=== PATIENT | female | born 1930 | race Caucasian/White ===

== ENCOUNTER → 2016-12-25 | Outpatient (CLI) | payer MEDICARE, OTHER, MEDICAID ==
[~2016-12-25] MED LIST: ALBUTEROL2.5 MG/0.5 INH; ALBUTEROL2.5 MG/31 INH; ARTIFICIAL TEAR15 M2 OPHTH; ARTIFICIAL TEAR15 M4 OPHTH; ARTIFICIAL TEAR15 ML OPHTH; ASPIRIN325 MG PO; BACTRIM SS 400/1 TAB PO; CALTRATE 600 +1 EAC1 PO; CITRACAL+D(315M1 TAB PO; CLARITIN10 MG PO; CORDARONE,PACE200 MG PO; COREG 3.1253.125 MG PO; COZAAR100 MG PO; ELOCON45 GM TOP; HYDROCHLOROTH12.5 M1; HYDROCHLOROTH12.5 MG PO; I-VITE TABLET1 EACH PO; ICAPS AREDS SO1 EACH PO; LASIX40 MG PO; LASIX80 MG PO; LEVOTHROID (SY50 MCG PO; LIPITOR10 MG PO; MAG-OX-400(241400 MG PO; MI ACID SUSPEN355 M1 PO; MILK OF MA400 MG/5 M PO; MIRALAX PO527 GM/BOT PO; MIRALAX17 GM PO; MYLANTA (MAG-AL30 ML PO; NAMENDA10 MG PO; NORCO 5-325 TA1 EACH; NORCO 5-325 TA1 EACH PO; NORVASC2.5 MG PO; OMEGA 3 1,0001 EACH PO; OXYGEN M-15 INH; PEPTO BISMOL LIQ1 ML PO; PINK BISMU262 MG/15 PO; PRILOSEC20 MG PO; PROAIR RESPICL90 MCG INH; PROMETH-CODEIN 65 ML PO; PROVENTIL OR V6.7 GM INH; REGLAN10 MG PO; RESTASIS 0.05%1 VIAL OPHTH; ROBITUSSIN DM120 ML PO; TESSALON PERLE100 MG PO; THERAGRAN-M1 TAB PO; TYLENOL EXTRA500 MG PO; TYLENOL/COD#31 TAB PO; TYLENOL325 MG PO; ULTRAM50 MG PO; VALSARTAN-HCTZ1 EAC2 PO; VESICARE10 MG PO; VITAMIN C500 M1 PO; VITAMIN D1000 UNIT PO; ZAROXOLYN2.5 MG PO
== END | disposition disaster alternative care site (69) ==
LOC: LNHI 14:54
DX: I50.20 Unspecified systolic (congestive) heart failure (principal); I48.91 Unspecified atrial fibrillation; I10 Essential (primary) hypertension

== ENCOUNTER → 2017-02-18 | Emergency (ER) | payer MEDICARE, OTHER, MEDICAID | END | disposition disaster alternative care site (69) | LOC: GAMB 15:26 | DX: R53.1 Weakness (principal); S50.11XA Contusion of right forearm, initial encounter; W19.XXXA Unspecified fall, initial encounter ==

== ENCOUNTER → 2017-03-12 | Outpatient (CLI) | payer MEDICARE, OTHER, MEDICAID ==
--- NOTE | ~2017-03-12 | CON ---
PATIENT'S NAME: CLARE DURBIN [facility] AGE: 86 Y [address] ROOM: [place] [address] LOCATION: IC ADMIT DATE: 03/12/2017 Consultation DISCHARGE DATE: FAMILY PHYSICIAN: JACK HOUSE MD ATTENDING PHYSICIAN: JACK HOUSE DATE OF CONSULTATION: 03/12/2017 [id number] encounter time 10:05 to 11:05 a.m. HISTORY OF PRESENT ILLNESS: Clare is an 86-year-old white female, who was referred to me by Dr. Jack House for diabetic self-management education. Clare was recently diagnosed with type 2 diabetes about a week ago. Her current height is 5 feet and 5 inches, weight is 183.6 pounds, and BMI is 30.52. MEDICATIONS: 1. Namenda 10 mg b.i.d. 2. Amiodarone 200 mg daily. 3. Aspirin EC 325 mg daily. 4. Milk of magnesia 30 mL p.r.n. 5. Polyethylene glycol 17 grams daily. 6. Acetaminophen 325 mg 1 to 2 tablets every 4 hours as needed for pain. 7. Artificial Tears q.i.d. 8. Caltrate 600 plus vitamin D 1 tablet daily. 9. Magnesium oxide 400 mg twice daily. 10. Cameron-3 fish oil 1000 mg daily. 11. Restasis 0.05% ophthalmic emulsion as needed daily. 12. Theragran-M oral tablet 1 daily. 13. Vitamin C 500 mg daily. 14. Atorvastatin 10 mg daily. 15. Allopurinol 300 mg daily. 16. Levothyroxine 50 mcg daily. 17. Tradjenta 5 mg daily. 18. Escitalopram 20 mg daily. 19. [place] 5/325 one tablet every 4 to 6 hours as needed for pain p.r.n. 20. Rhinocort nasal spray 1%, one spray to each nostril twice daily. 21. Loratadine 10 mg daily. 22. Amlodipine 2.5 mg daily. 23. Furosemide 40 mg Mondays, Wednesdays, and Fridays. 24. Valsartan 320 mg daily. Her current health problems are acute on chronic renal failure, allergic rhinitis, Alzheimer dementia, anemia, atrial fibrillation, cervical spine degeneration, chronic constipation, edema, fatigue, history of syncope, PATIENT'S NAME: CLARE DURBIN [facility] AGE: 86 Y [address] ROOM: [place] [address] LOCATION: [facility] ADMIT DATE: 03/12/2017 Consultation DISCHARGE DATE: FAMILY PHYSICIAN: JACK HOUSE MD ATTENDING PHYSICIAN: JACK HOUSE hyperlipidemia, hyperuricemia, hyponatremia, hypothyroidism, lightheadedness, new-onset of type 2 diabetes, osteoarthritis, depression, pain, uncontrolled hypertension, and widened pulse pressure product. Clare was diagnosed about a week ago. Her most current lab work was obtained on February 27, 2017. Her A1c was 7.6% with a fasting glucose of 210. Her microalbumin is greater than 300. I advised her that her target goals are to keep her between 7.5% and 8% for her A1c because of her advanced age of [age] years old. Her target fasting glucose would be 90 to 130, and her 2-hour postprandial would be below 180. Her potassium is 3.8, BUN 38, creatinine is 2.07 with an EGFR of 24.2. She does not currently have a glucometer. I gave her a One Touch Verio Flex Glucometer, instructed her how to obtain a glucose as we would do this in the fasting state everyday. She lives in the assisted living facility at [facility] and she is on assisted living side and the nurses will be checking this everyday. A new script was sent into the pharmacy for her. She does have some exercise limitations both due to her heart and her renal failure as well as just she is a little unsteady on her feet. She uses her seated walker on wheels wherever she goes,so that she does not fall. She notes that she has not had any recent falls. She was doing some physical therapy and occupational therapy 3 times a week, which she just finished about a week ago. She is now trying to participate in some exercise classes at [facility] as well as using the [employer]. She has been also having some issues with her right rotator cuff and has supposed to be doing some exercises for that. She does not see her dentist routinely as she has a full set of dentures, although she is having some issues with those and has a few mouth sores. She gets an eye exam every year with Dr. Guardado and she should be due for one in the near future. We did her foot exam today. She has hard to feel dorsalis pedis pulses and posterior tibial pulses. She has no open sores. She is able to feel the monofilament in all areas of her feet. Her toenails were trimmed. She does have a gentleman, hunting sales leader, who apparently comes out from [place] every 3 months and does do toenail trimming. She did have some kind of gouging into her skin by the great toenails so those were trimmed without difficulty. Her skin is not particularly dry. She does have 2+ pitting edema on the right and 1+ on the left. She has recently had her metolazone decreased by Dr. House and thus may be part of it. She does wear her VILMA stockings everyday. We did review the pathophysiology of type 2 diabetes and it's progression. We also reviewed signs and symptoms of hyper and hypoglycemia. We reviewed the rule of 15 to treat hypoglycemia and she was given a handout for that. She is retired. Again, like I said she lives in the assisted living side [facility] and all of her meals are prepared by the staff. She occasionally will have a glass of wine, otherwise does not consume much alcohol. She denies any smoking. She eats out about once a week. She has been, since she was diagnosed with diabetes, trying to watch her carb intake a little more cautiously. Her scheduled changes are not much, they are PATIENT'S NAME: CLARE DURBIN [facility] AGE: 86 Y [address] ROOM: [place] [address] LOCATION: [facility] ADMIT DATE: 03/12/2017 Consultation DISCHARGE DATE: FAMILY PHYSICIAN: JACK HOUSE MD ATTENDING PHYSICIAN: JACK HOUSE virtually the same on the weekdays and weekends except she goes to sabianism on Sundays. She denies any food-related allergies or intolerances. Her appetite is good. She has had problems with constipation for quite some time. She is also on a fluid restriction because of her chronic kidney disease. She uses prunes and prune juice everyday. She is on some vitamin and mineral supplements. As far as the impact when she was diagnosed with diabetes, she said she just figured it was one more thing that she was going to get. Her normal day starts out about 7 o'clock. She goes and eats breakfast about 8. She will usually have a small bowl of oatmeal with a few raisins and 2 link sausages. She will occasionally have some eggs and then she has a slice of raisin bread, prune juice, and coffee. She will occasionally use some Splenda or Equal on her oatmeal. She does not have a midmorning snack. Lunch is about 11:30 and she usually does a salad bar and has tried to avoid the sweet salads and does eat a few of the fruits there. She uses either Sheila Briones or Ranch salad dressing on her salads. Then, there are 3 choices of meats, usually a breaded fish, chicken strips, and some ribs or some other kind of meat; and she has hardly consumed any bread since her diagnosis, and again she has water or coffee. She notes that on Wednesdays, Saturdays, and Sundays, there is a buffet at noon, otherwise there are 3 choices of main dishes and side dishes. She does not have an afternoon snack. If she does, she usually has some cookies on hand. Her evening meals between 04:30 and 05:30, and again there is some sort of meat and some sort of vegetable in the form of broccoli, mixed vegetables, green beans, or sweet potatoes. She rarely eats regular potatoes. She does not necessarily have a bedtime snack and she does get quite hungry in the evening. She notes that she gets up a lot during the night to urinate almost every hour and so her sleep is somewhat interrupted. We did discuss the plate method and discussed better choices of carbohydrates and we discussed portion sizes using her hands. We also discussed there was nothing that was truly off limits for her, but we need worry about portion sizes and how often she has had it. I advised her that the raisin bread is probably not a good idea for breakfast, but simply maybe do some eggs or oatmeal. I told her to try to go more with the prunes rather than the prune juice as that would cut down on the spike to her blood sugar. She seemed to understand this and had many questions that she asked and those were answered to her satisfaction. She is going to try to increase her exercises and try about 15 minutes 3 times a week and gradually work her way up. We did discuss the Codman exercises for her shoulder, so that she can keep using those. Orders were sent to [facility] along with her new glucometer to have her fasting glucose tested at least 5 days a week. I also asked them to set up an appointment for a diabetic eye exam with Dr. Guardado in the near future. Thank you for this interesting consultation. I look forward to helping Clare. She seems to have made many changes already in her lifestyle and diet. She is somewhat limited as some of the choices that she has given all of her meals are cooked for her and we did discuss more on the portion sizes and the plate method. I did discuss with PATIENT'S NAME: CLARE DURBIN [facility] AGE: 86 Y [address] ROOM: [place] [address] LOCATION: [facility] ADMIT DATE: 03/12/2017 Consultation DISCHARGE DATE: FAMILY PHYSICIAN: JACK HOUSE MD ATTENDING PHYSICIAN: JACK HOUSE her the possibility of having a bedtime snack in the form of crackers and peanut butter, or crackers and cheese, or possibly some Moroccan yogurt, which she seemed to interested in. She does note that she does visit the ice cream machine at [facility] once in a while, but gave up on that also. I advised her that our criteria is not to be so strict for her A1c given her age of almost 87 years old, but we would like to keep her under 8%. I look forward to following up with her at her next visit with you, Dr. House. MANUELA GRIMALDO/solomon /[id number] d: 03/14/170 t: 03/23/17 1842, CONSULTATION REPORT
== END | disposition disaster alternative care site (69) ==
LOC: GDIC 09:48
DX: E11.9 Type 2 diabetes mellitus without complications (principal); E78.5 Hyperlipidemia, unspecified; E03.9 Hypothyroidism, unspecified; I10 Essential (primary) hypertension
CPT/HCPCS: G0108

== ENCOUNTER → 2017-04-08 | Outpatient (CLI) | payer MEDICARE, OTHER, MEDICAID | END | disposition disaster alternative care site (69) | LOC: LGSMG 11:10 | DX: N18.3 Chronic kidney disease, stage 3 (moderate) (principal) ==

== ENCOUNTER 2017-05-02 20:47 | Emergency (ER) | payer MEDICARE, OTHER, MEDICAID ==
--- NOTE | ~2017-05-02 | ER ---
PATIENT'S NAME: NIHARIKA DURBIN [facility] AGE: 87 Y [address] ROOM: [place] [address] LOCATION: [facility] ADMIT DATE: 05/02/2017 ER/Outpatient Report DISCHARGE DATE: 05/02/2017 FAMILY PHYSICIAN: Physician, Unknown ATTENDING PHYSICIAN: Sherrie Burns A HISTORY OF PRESENT ILLNESS: An 87-year-old female, brought in by EMS after a fall. She complains of some right lower extremity pain and right shoulder pain. She normally walks with a walker. She lives in assisted living. She says she lost her balance and fell to the ground. Max pain is in the right shoulder at this time. She reports that it is a 2/10. It was a ground level fall. She did not hit her head or neck. She did not pass out. She says that she has sort of chronic low back pain, which radiates down her right leg, that has been ongoing for at least a few months for which she follows with Dr. Ruiz for this. She recently saw him, they thought it was more sciatica, and he recommend that she have an MRI, which they are considering. She has a followup appointment with him in the next 5 days. The patient says that she thinks that sort of contributed to her fall and that she had this right lower extremity pain. She says it is not weak otherwise. She does not have any numbness or tingling. She has no bowel or bladder incontinence. No other complaints at this time. PAST MEDICAL HISTORY: Includes hypertension, hyperlipidemia, and hypothyroidism. SOCIAL HISTORY: She does not smoke, drink, or use any drugs. MEDICATIONS: Please see med list. ALLERGIES: NONE. REVIEW OF SYSTEMS: Reviewed by me and negative with the exception of those discussed in the HPI. PHYSICAL EXAMINATION: VITAL SIGNS: She weighs 83.9 kg. Blood pressure 167/111; heart rate 60; respiratory rate 18; temperature is 98, tympanic; and saturations are 96% on room air. GENERAL: The patient is not in any acute distress. She is able to move herself onto the stretcher. HEENT: Pupils are equal and reactive to light. She has no facial tenderness. No entrapment. No malocclusion. No signs of head trauma. PATIENT'S NAME: NIHARIKA DURBIN [facility] AGE: 87 Y [address] ROOM: [place] [address] LOCATION: [facility] ADMIT DATE: 05/02/2017 ER/Outpatient Report DISCHARGE DATE: 05/02/2017 FAMILY PHYSICIAN: Physician, Unknown ATTENDING PHYSICIAN: Sherrie Burns NECK: Supple. MUSCULOSKELETAL: She has no C-spine tenderness. No T, L, or S-spine tenderness. CHEST: Heart rate is regular rate and rhythm. She has no chest wall tenderness. No signs of trauma. Lung sounds are clear. ABDOMEN: Soft, nontender, nondistended. She has no rebound or guarding. PELVIS: Stable. EXTREMITIES: To her shoulder; she has full range of motion of that right shoulder. I do not notice any swelling. She is mildly tender over the humeral head. No clavicular tenderness on the right. Full range of motion. No swelling of the elbow or wrist either. Her strength in bilateral lower extremities is 5/5. She has intact sensation in bilateral lower extremities, wiggles toes. No difference in strength in bilateral lower extremities. She has some bruising though on her knees and on the right side. EMERGENCY ROOM COURSE: An x-ray of her shoulder was done and other than being osteoporotic, she does not have any fracture or dislocation. This was discussed with her. She will follow up with Dr. Ruiz. She understands reasons to come back to the ER sooner. IMPRESSION: Ground level fall. MD PHYLLIS CRANE/solomon /[id number] d: 05/03/17 0603 t: 05/04/17 0406, OUTPATIENT REPORT
== END 2017-05-02 22:05 | disposition disaster alternative care site (69) ==
LOC: GACC 20:47
DX: S80.01XA Contusion of right knee, initial encounter (principal); I10 Essential (primary) hypertension; E03.9 Hypothyroidism, unspecified; E78.00 Pure hypercholesterolemia, unspecified; Z79.82 Long term (current) use of aspirin; Z79.899 Other long term (current) drug therapy; W18.30XA Fall on same level, unspecified, initial encounter

== ENCOUNTER → 2017-05-02 | Outpatient (CLI) | payer MEDICARE, OTHER, MEDICAID | END | disposition disaster alternative care site (69) | LOC: GAMB 20:24 | DX: R53.1 Weakness (principal); M25.511 Pain in right shoulder; I10 Essential (primary) hypertension; F32.9 Major depressive disorder, single episode, unspecified; K21.9 Gastro-esophageal reflux disease without esophagitis; Z79.82 Long term (current) use of aspirin; Z79.1 Long term (current) use of non-steroidal anti-inflammatories (NSAID); Z79.891 Long term (current) use of opiate analgesic; Z79.899 Other long term (current) drug therapy | CPT/HCPCS: A0425; A0429 ==

== ENCOUNTER 2017-05-16 18:28 | Emergency (ER) | payer MEDICARE, OTHER, MEDICAID ==
--- NOTE | ~2017-05-16 | ER ---
PATIENT'S NAME: NIHARIKA DURBIN [facility] AGE: 87 Y [address] ROOM: [place] [address] LOCATION: [facility] ADMIT DATE: 05/16/2017 ER/Outpatient Report DISCHARGE DATE: 05/16/2017 FAMILY PHYSICIAN: Physician, Unknown ATTENDING PHYSICIAN: Hernando Rebollar Time of Arrival: 1830 hours. Time of Exam: 1830 hours. CHIEF COMPLAINT: Fall. HISTORY OF PRESENT ILLNESS: The patient arrived per EMS. The patient reports that she fell this afternoon, was doing fine, did not want to be seen at that time; and then as the night has progressed, she has become more tender in her lower back. The patient reports that she went to sit down on her walker chair about 1 o'clock this afternoon, missed the chair and ended up falling on the floor. She states she did hit her head, but did not have any loss of consciousness. Complains of pain in her mid back area. She has no problems with her vision. No chest pain. No shortness of breath. She states she has become weaker lately. Daughter reports that she has fallen at least 4 times over the past 2 weeks. She has not received any injury from any of the falls. ALLERGIES: NO KNOWN ALLERGIES. CURRENT MEDICATIONS: On the chart and reviewed by me. PAST MEDICAL HISTORY: Dementia, hypertension, hyperlipidemia, hypothyroidism, and oxygen at night. PAST SURGERIES: Cataracts and hysterectomy. SOCIAL HISTORY: She lives at [facility]. She denies use of tobacco, drugs, or alcohol. REVIEW OF SYSTEMS: Negative other than those mentioned in the HPI. PHYSICAL EXAMINATION: VITAL SIGNS: Blood pressure was 190/81, pulse is 72, respirations are 18, PATIENT'S NAME: NIHARIKA DURBIN [facility] AGE: 87 Y [address] ROOM: [place] [address] LOCATION: [facility] ADMIT DATE: 05/16/2017 ER/Outpatient Report DISCHARGE DATE: 05/16/2017 FAMILY PHYSICIAN: Physician, Unknown ATTENDING PHYSICIAN: Hernando Rebollar temperature of 99.4 orally, and O2 saturation was 92% on room air. GENERAL: She is awake, alert, and oriented x4. SKIN: [place], warm, and dry. RESPIRATIONS: Even and nonlabored. HEENT: Pupils are equal and reactive to light. Oropharynx is clear. NECK: Supple. No lymphadenopathy. LUNGS: Lung sounds are clear throughout. HEART: Regular rate and rhythm. ABDOMEN: Soft, nondistended. Bowel sounds are present. EXTREMITIES: She has strong peripheral pulses. Does have some nonpitting edema of her lower legs. She does have VILMA stockings on. MUSCULOSKELETAL: She is able to move her legs. Increased discomfort of her lower back. LABORATORY DATA AND X-RAYS: Lab work was initiated. CBC is within normal limits. Chem Panel: Sodium is 136, potassium is 4.7, chloride is 106, glucose is 188, BUN is 30 with a creatinine of 1.7. Cardiac enzymes are negative. Free T4 is 1 with a TSH of 8.6. Lactate was normal at 1.1. Procalcitonin is negative. CT of the head shows no acute intracranial process. CT of the cervical spine, thoracic spine, and lumbar spine was completed. No acute abnormalities are seen. The patient rested comfortably on the cart. Her daughter who is her power of civil rights attorney was contacted and report was given. IMPRESSION: Ground level fall with low back pain. PLAN: The patient will return to [facility], they are to offer her pain medications as written. Fall precautions are advised. She should follow up with her primary provider in the next 2 to 3 days. Family is aware of plan of care. SHAREE ALEXANDRE APRN FOR MD TATY LEE/solomon /[id number] d: 05/16/17 2259 t: 05/20/17 1459, OUTPATIENT REPORT
[2017-05-16 18:50] LABS: BASOPHIL # 0.1 K/uL (0.0-0.2); BASOPHIL % 0.5 %; EOSINOPHIL # 0.1 K/uL (0.0-0.5); EOSINOPHIL % 1.1 %; HEMATOCRIT 32.2 % (30.0-46.0); HEMOGLOBIN 10.7 g/dL (10.0-15.0); IMMATURE GRANULOCYTE # 0.1 K/uL (0.0-0.3); IMMATURE GRANULOCYTE % 0.5 %; LYMPHOCYTE # 1.6 K/uL (0.8-4.0); MCH 32.3 pg (27.0-34.0); MCHC 33.2 gm/dL (32.0-36.5); MCV 97.3 fl (83.0-98.0); MONOCYTE # 1.4 K/uL (0.0-1.0); MONOCYTE % 12.8 %; MPV 10.7 fl (9.4-12.4); NEUTROPHIL # (ANC) 7.5 K/uL (1.8-7.8); NEUTROPHIL % 70.1 %; NRBC % 0 /100WBC (0-0.00); PLATELET COUNT 178 K/uL (150-450); RBC 3.31 M/uL (3.00-5.00); RDW-CV 14.5 % (11.9-14.6); WBC 10.7 K/uL (4.0-11.0)
[2017-05-16 18:58] LABS: PROTIME 10.5 SECONDS (9.8-11.4); PTT 26 SECONDS (25-32)
[2017-05-16 19:12] LABS: ALBUMIN 3.5 gm/dL (3.5-5.0); ALK PHOS 97 IU/L (33-138); ALT 35 IU/L (12-78); ANION GAP 12.7 (10.0-19.0); AST 29 IU/L (10-40); BLOOD UREA NITROGEN 30 mg/dL (6-24); CALCIUM 8.4 mg/dL (8.5-10.5); CHLORIDE 106 mMol/L (96-110); CO2 22 mMol/L (22-32); CPK 157 IU/L (21-215); CREATININE 1.7 mg/dL (0.5-1.1); POTASSIUM 4.7 mMol/L (3.7-5.1); SODIUM 136 mMol/L (135-145); TOTAL BILIRUBIN 0.5 mg/dL (0.0-1.5)
== END 2017-05-16 21:20 | disposition disaster alternative care site (69) ==
LOC: GACC 18:28
PROVIDERS: Nurse Practitioner Family
DX: M54.5 Low back pain (principal); I10 Essential (primary) hypertension; E78.5 Hyperlipidemia, unspecified; E03.9 Hypothyroidism, unspecified; F03.90 Unspecified dementia, unspecified severity, without behavioral disturbance, psychotic disturbance, mood disturbance, and anxiety; Z90.710 Acquired absence of both cervix and uterus; Z98.49 Cataract extraction status, unspecified eye; Z79.899 Other long term (current) drug therapy; Z79.82 Long term (current) use of aspirin; W18.30XA Fall on same level, unspecified, initial encounter

== ENCOUNTER → 2017-05-16 | Emergency (ER) | payer MEDICARE, OTHER, MEDICAID | END | disposition disaster alternative care site (69) | LOC: GAMB 12:46 | DX: G89.29 Other chronic pain (principal); M54.40 Lumbago with sciatica, unspecified side; I10 Essential (primary) hypertension; K21.9 Gastro-esophageal reflux disease without esophagitis; F03.90 Unspecified dementia, unspecified severity, without behavioral disturbance, psychotic disturbance, mood disturbance, and anxiety; Z79.82 Long term (current) use of aspirin; Z79.899 Other long term (current) drug therapy; Z79.891 Long term (current) use of opiate analgesic ==

== ENCOUNTER 2017-05-18 06:56 | Emergency (ER) | payer MEDICARE, OTHER, MEDICAID ==
--- NOTE | ~2017-05-18 | ER ---
PATIENT'S NAME: NIHARIKA DURBIN [facility] AGE: 87 Y [address] ROOM: [place] [address] LOCATION: ED ADMIT DATE: 05/18/2017 ER/Outpatient Report DISCHARGE DATE: 05/18/2017 FAMILY PHYSICIAN: Geronimo Woodson MD ATTENDING PHYSICIAN: Adriel Santana CHIEF COMPLAINT: Cardiac arrest. HISTORY OF PRESENT ILLNESS: Ms. Durbin was a resident of [facility]. By report, she had been up with staff at around 2:00 a.m. and was able to use the restroom, but was found to be febrile to the 102 range at that time. She was put back to bed, and upon morning med rounds around 6:15, she was found to be unresponsive and CPR was initiated. EMS was contacted. They arrived and found the patient to be in asystole. By report from the facility, the patient does not have a DNR and thus was treated as a full code. She was intubated and received an IO by EMS. She was brought in for further evaluation. EMS gave several rounds of epinephrine and reports continued asystole on the monitor. PAST MEDICAL HISTORY: Notable for recurrent syncope with possible dysrhythmia as well as a possible short cardiac arrest in August. Other past medical history includes bilateral carotid endarterectomy, frequent UTIs, hyponatremia, Alzheimer disease which is questionable, history of TIA, and history of DVT. PAST SURGICAL HISTORY: Includes hysterectomy and endarterectomy. MEDICATIONS: Reviewed as noted on the chart as best as possible given the situation. REVIEW OF SYSTEMS: Could not be completed as the patient is currently in cardiac arrest. PHYSICAL EXAMINATION: GENERAL: Lifeless elderly female with CPR in progress, lying on the exam table. She has poor color throughout. NEURO: No response whatsoever. HEENT: Grossly normocephalic, atraumatic. She has an endotracheal tube in place with pink frothy secretions, which are copious. NECK: Appears grossly normal with trachea midline. CHEST: Bilateral breath sounds are present. No cardiac tones auscultated. ABDOMEN: Slightly distended, resonant to percussion, with no masses. EXTREMITIES: Cool with no obvious deformities. PATIENT'S NAME: NIHARIKA DURBIN [facility] AGE: 87 Y [address] ROOM: [place], [place] [address] LOCATION: ED ADMIT DATE: 05/18/2017 ER/Outpatient Report DISCHARGE DATE: 05/18/2017 FAMILY PHYSICIAN: Geronimo Woodson MD ATTENDING PHYSICIAN: Adriel Santana SKIN: Cool throughout. LABORATORY DATA AND X-RAYS: None. IMPRESSION: 1. . 2. Presumed cardiac dysrhythmia. EMERGENCY DEPARTMENT COURSE: The patient was seen and evaluated at bedside upon arrival. ACLS protocols were followed, please see nursing notes for timing and administration of medications. She was given calcium and bicarb as recent review of her labs from a recent fall revealed that she did have some evidence of renal impairment. Despite all of this effort, the patient remained in asystole. After approximately 45 minutes from the initiation of EMS evaluation, we declared the patient at 7:10 a.m. at bedside. I did speak with the patient's daughter, Dai Vital and informed her. She was the power of family law attorney. Unfortunately, this had to be done over the phone as she lives in [place]. My suspicion is that the cause of is either heart attack or dysrhythmia; however, sepsis is concerned as the patient was reported to have a fever recently. ADRIEL SANTANA MD JH/modl /[id number] d: 05/18/1744 t: 05/27/17 1045, OUTPATIENT REPORT
== END 2017-05-18 07:10 | disposition expired ==
LOC: GMED 06:56
DX: I46.9 Cardiac arrest, cause unspecified (principal)

== ENCOUNTER → 2017-05-18 | Outpatient (CLI) | payer MEDICARE, OTHER, MEDICAID | END | disposition disaster alternative care site (69) | LOC: GAMB 06:31 | DX: I46.9 Cardiac arrest, cause unspecified (principal) | CPT/HCPCS: A0425; A0433; J0171; J7030 ==